=== PATIENT | female | born 1965 | race Caucasian/White ===

== ENCOUNTER 2023-11-29 10:06 | Emergency (ER) | payer BC ==
[2023-11-29] MEDS ORDERED: METHYLPREDNISOLONE 125 MG INJ ONE (10:17)
[2023-11-29] MEDS ORDERED: ALBUTEROL 2.5 MG/3 ML NEB SOL ONE (10:17)
[2023-11-29 10:26] LABS: Absolute Basophils 0.1 K/uL (0-0.5); Absolute Lymphocytes (CBC) 5.1 K/uL (0.7-4.9); Absolute Monocytes 0.8 K/uL (0.1-1.3); Absolute Neutrophil 5.5 K/uL (1.8-8.0); Basophils % 0.7 % (0-1.3); Eosinophils % 0.4 % (0-4.4); Hematocrit 39.1 % (36.0-45.0); Lymphocytes % 44.3 % (15.3-44.8); MCH 30.8 pg (27.0-35.0); MCHC 33.3 g/dL (32.0-36.0); MCV 92.5 fL (80-100); MPV 8.3 fL (7.6-11.3); Monocytes % 7.1 % (3.3-12.3); Neutrophils % 47.5 % (41.7-73.7); Platelets 435 thou/uL (152-406); RBC Red Blood Cell Count 4.22 M/uL (3.86-4.86); Red Cell Distribution Width 13.2 % (12.1-15.2)
[2023-11-29 10:35] LABS: PT Prothrombin Time 10.8 SECONDS (9.5-12.5); Protime INR 0.98
[2023-11-29 10:45] LABS: ALT/SGPT 35 U/L (13-56); AST/SGOT 20 U/L (15-37); Albumin 3.8 g/dL (3.4-5.0); Albumin/Globulin Ratio 1.3 (1.1-1.8); Alkaline Phosphatase 103 U/L (45-117); BUN Blood Urea Nitrogen 16 mg/dL (7-18); Bicarbonate 23 mEq/L (21-32); Bilirubin Direct 0.1 mg/dL (0-0.2); Bilirubin Indirect, Calculated 0.3 mg/dL (0.2-0.8); Bilirubin Total 0.4 mg/dL (0.2-1.0); Glomerular Filtration Rate 73 ml/min (=/>90); Glucose Level 208 mg/dL (74-106); NT PRO-BNP 121 pg/mL (<125); Protein, Total 6.8 g/dL (6.4-8.2); Sodium Level 140 mEq/L (136-145)
[2023-11-29 10:52] LABS: Troponin High Sensitivity < 3.0 pg/mL (<58.9)
--- NOTE | 2023-11-29 10:57 | RAD REPORT ---
EXAM DESCRIPTION: RAD - Chest Single View - 11/29/2023 10:49 am CLINICAL HISTORY: DYSPNEA COMPARISON: No comparisons FINDINGS: Lines: None. Lungs: No evidence of edema or pneumonia. Pleural: No significant pleural effusions or pneumothorax. Cardiac: The heart size is within normal limits. Mediastinum: Within normal limits. Bones: No acute fractures. Other: None IMPRESSION: No acute cardiopulmonary disease.
[2023-11-29] MEDS ORDERED: POTASSIUM CL SA 10 MEQ TAB PO ONE (11:06)
--- NOTE | 2023-11-29 12:26 | ER ---
Nurse's Notes [facility] Name: Jael Major Age: 58 yrs Sex: Female : 1965 Arrival Date: 11/29/2023 Time: 10:06 Bed 3 Private MD: Diagnosis: Dyspnea;Palpitations Presentation: 11/28 10:07 Chief complaint: Patient states: Took amoxicillin and diclofenac 30 min TURNAROUND PLANNER. Feels hot, ll1 fast HR, ears red. Coronavirus screen: Client denies travel out of the [place] in the last 14 days. At this time, the client does not indicate any symptoms associated with coronavirus-19. Ebola Screen: Patient denies travel to an Ebola-affected area in the 21 days before illness onset. Onset: The symptoms/episode began/occurred suddenly. Anaphylaxis evaluation, no signs or symptoms of anaphylaxis were noted. Initial Sepsis Screen: Does the patient meet any 2 criteria? No. Patient's initial sepsis screen is negative. Does the patient have a suspected source of infection? No. Patient's initial sepsis screen is negative. Risk Assessment: Do you want to hurt yourself or someone else? Patient reports no desire to harm self or others. Onset of symptoms was November 29, 2023. 10:07 Method Of Arrival: Ambulatory ll1 10:07 Acuity: KENNETH 2 ll1 Triage Assessment: 10:09 General: Appears distressed, uncomfortable, Behavior is appropriate for age, agitated. ll1 Pain: Complains of pain in tooth pain Quality of pain is described as aching, throbbing. EENT: Reports tooth pain. Neuro: Reports feel hot. Cardiovascular: Reports palpitations. Historical: - Allergies: 10:07 Bactrim DS; ll1 - PMHx: 10:07 Hypercholesterolemia; ll1 - Immunization history:: Adult Immunizations up to date. - Infectious Disease History:: Denies. - Social history:: Smoking status: Patient reports the use of cigarette tobacco products, smokes one-half pack cigarettes per day. Screenin:45 [facility] ED Fall Risk Assessment (Adult) History of falling in the last 3 months, ld1 including since admission No falls in past 3 months (0 pts). Abuse screen: Denies threats or abuse. Denies injuries from another. Nutritional screening: No deficits noted. Tuberculosis screening: No symptoms or risk factors identified. Assessment: 11:50 Reassessment: Patient appears in no apparent distress at this time. No changes from ld1 previously documented assessment. Patient and/or family updated on plan of care and expected duration. Pain level reassessed. Patient states symptoms have not improved. 12:44 Reassessment: Patient appears in no apparent distress at this time. No changes from ld1 previously documented assessment. Patient and/or family updated on plan of care and expected duration. Pain level reassessed. Patient is alert, oriented x 3, equal unlabored respirations, skin warm/dry/pink. 12:45 Respiratory: Airway is patent Respiratory effort is even, unlabored, Breath sounds are ld1 clear bilaterally. Vital Signs: 10:06 BP 120 / 57; Pulse 59; Resp 21; Temp 97.3(TE); Pulse Ox 86% on R/A; ld1 10:07 Pulse 76; Resp 18; Temp 97.3; Weight 106.59 kg; Height 5 ft. 7 in. ; ll1 11:24 BP 125 / 54; Pulse 66; Resp 22; Pulse Ox 95% on R/A; ld1 10:07 Body Mass Index 36.81 (106.59 kg, 170.18 cm) ll1 ED Course: 10:06 Patient arrived in ED. ld1 10:09 Triage completed. ll1 10:10 Arm band placed on Patient placed in an exam room, on a stretcher. ll1 10:15 Bharath Fournier, LIO is Primary Nurse. bp 10:15 Mavis Baker FNP is PHCP. jh7 10:15 Peter Alberto MD is Attending Physician. jh7 10:15 Inserted saline lock: 20 gauge in right antecubital area, using aseptic technique. bp Blood collected. 10:20 CBC with Diff Sent. bp 10:20 Basic Metabolic Panel Sent. bp 10:20 D-Dimer Sent. bp 10:20 LFT's Sent. bp 10:20 Magnesium Sent. bp 10:20 NT PRO-BNP Sent. bp 10:20 PT-INR Sent. bp 10:20 Troponin HS Sent. bp 10:51 XRAY Chest (1 view) In Process Unspecified. EDMS 12:45 Patient has correct armband on for positive identification. Placed in gown. Bed in low ld1 position. Call light in reach. Side rails up X2. ekg monitor on. Pulse ox on. NIBP on. Door closed. Noise minimized. Warm blanket given. 12:45 No provider procedures requiring assistance completed. IV discontinued, intact, ld1 bleeding controlled, No redness/swelling at site. Administered Medications: 10: Drug: MethylPrednisoLONE IVP 125 mg IVP once Route: IVP; Site: right antecubital; ld1 10: Drug: Albuterol Inhalation 2.5 mg Inhalation once Route: Inhalation; ld1 11:12 Drug: Potassium Chloride PO 40 mEq PO once Route: PO; ld1 Medication: 12:45 VIS not applicable for this client. ld1 Outcome: : Discharge ordered by . jh7 12:45 Discharged to home ambulatory, ld1 12:45 Condition: stable 12:45 Discharge instructions given to patient, Instructed on discharge instructions, follow up and referral plans. Demonstrated understanding of instructions, follow-up care, 12:45 Patient left the ED. ld1 Signatures: Dispatcher [employer] EDMS Bharath Fournier RN RN bp Lewis, Lynsay, RN RN 1 Tereza Hayes RN RN 1 Mavis Baker, PUBLIC RELATIONS ASSISTANT PUBLIC RELATIONS ASSISTANT [facility] Corrections: (The following items were deleted from the chart) 10:13 10:07 Chief complaint: Patient states: Took amoxicillin and 30 min TURNAROUND PLANNER. Feels hot, fast ll1 HR, ears red. ll1 10:30 10:07 Chief complaint: Patient states: Took amoxicillin and diflucnate 30 min TURNAROUND PLANNER. ll1 Feels hot, fast HR, ears red. ll1
--- NOTE | 2023-11-29 12:26 | EDPHYS ---
Physician Documentation [facility] Name: Jael Major Age: 58 yrs Sex: Female : 1965 Arrival Date: 11/29/2023 Time: 10: Bed 3 Private MD: ED Physician Peter Alberto HPI: 11/28 10:07 This 58 yrs old Female presents to ER via Ambulatory with complaints of Possible jh7 Allergic Reaction. 10:07 58-year-old female with a past medical history of hyperlipidemia presents to the ER for jh7 possible allergic reaction. She reports that she is scheduled to get multiple teeth pulled later in the week and that she took some diclofenac and amoxicillin 30 minutes prior to arrival. She reports that she has taken both of these medications before. Reports that she suddenly felt palpitations, shortness of breath, and flushed. Denies fever, chest pain, cough, itching, rash, and feeling like throat is closing.. Historical: - Allergies: 10:07 Bactrim DS; ll1 - PMHx: 10:07 Hypercholesterolemia; ll1 - Immunization history:: Adult Immunizations up to date. - Infectious Disease History:: Denies. - Social history:: Smoking status: Patient reports the use of cigarette tobacco products, smokes one-half pack cigarettes per day. ROS: 10:07 Constitutional: Per HPI jh7 Exam: 10:07 Eyes: Pupils equal round and reactive to light, extra-ocular motions intact. Lids and jh7 lashes normal. Conjunctiva and sclera are non-icteric and not injected. Cornea within normal limits. Periorbital areas with no swelling, redness, or edema. Cardiovascular: Regular rate and rhythm with a normal S1 and S2. No gallops, murmurs, or rubs. Normal PMI, no JVD. No pulse deficits. Abdomen/GI: Soft, non-tender, with normal bowel sounds. No distension or tympany. No guarding or rebound. No evidence of tenderness throughout. Back: No spinal tenderness. No costovertebral tenderness. Full range of motion. Skin: Warm, dry with normal turgor. Normal color with no rashes, no lesions, and no evidence of cellulitis. MS/ Extremity: Pulses equal, no cyanosis. Neurovascular intact. Full, normal range of motion. Neuro: Awake and alert, GCS 15, oriented to person, place, time, and situation. Motor strength 5/5 in all extremities. Sensory grossly intact. Normal gait. 10:07 Constitutional: The patient appears alert, awake, in obvious distress, mildly distressed, 10:07 Head/face: Exam is negative for swelling, 10:07 ENT: TM's: are normal, Nose: is normal, Posterior pharynx: is normal, Airway: normal, Tonsils: are normal in appearance, Uvula: normal, swelling, is not appreciated, pooling of secretions, is not appreciated, 10:07 Respiratory: mild respiratory distress is noted, Respirations: labored breathing, 10:07 Skin: Appearance: Color: dusky, flushing, that are moderate, Vital Signs: 10:06 BP 120 / 57; Pulse 59; Resp 21; Temp 97.3(TE); Pulse Ox 86% on R/A; ld1 10:07 Pulse 76; Resp 18; Temp 97.3; Weight 106.59 kg; Height 5 ft. 7 in. ; ll1 11:24 BP 125 / 54; Pulse 66; Resp 22; Pulse Ox 95% on R/A; ld1 10:07 Body Mass Index 36.81 (106.59 kg, 170.18 cm) ll1 MDM: 10:15 Patient medically screened. [facility] 11:02 ED course: Labs reviewed and are reassuring, patient feeling better, will repeat [facility] troponin at noon.. 12:32 Differential diagnosis: anaphylaxis, Myocardial Ischemia urticaria, Pulmonary embolism, [facility] SVT, electrolyte abnormality, pneumonia. Data reviewed: vital signs, nurses notes, lab test result(s), EKG, radiologic studies, plain films. Management of patient was discussed with the following: Dr. Alberto, ED attending physician. I considered the following discharge prescriptions or medication management in the emergency department Medications were administered in the Emergency Department. See MAR. Independent interpretation of the following test(s) in the Emergency Department EKG: See my EKG interpretation above. Test considered but Not performed: CT: CTA PE not done due to negative D-dimer. Historians other than the Patient: Spouse/Significant Other: . Scoring [employer] PERC Rule for PE Age >/= 50 Yes HR >/= 100 No O2 Sat Room Air < 95% Yes Unilateral leg swelling No Hemoptysis No Recent surgery or trauma </= 4 wks ago requiring treatment with general anesthesia No (0 pt) Prior PE or DVT No Hormone use (Oral contraceptives, hormone replacement or estrogenic hormones use in males or female patients No. Counseling: I had a detailed discussion with the patient and/or guardian regarding the historical points, exam findings, and any diagnostic results supporting the discharge/admit diagnosis, to return to the emergency department if symptoms worsen or persist or if there are any questions or concerns that arise at home. Response to treatment: the patient's symptoms have resolved after treatment, the patient is not short of breath. ED course: The patient's symptoms resolved after nebs and steroids. The patient was concern for an allergic reaction,. 11/28 10:16 Order name: Basic Metabolic Panel; Complete Time: [facility] 11/28 10:16 Order name: CBC with Diff; Complete Time: : [facility] 11/28 10:16 Order name: D-Dimer; Complete Time: [facility] 11/28 10:16 Order name: LFT's; Complete Time: [facility] 11/28 10:16 Order name: Magnesium; Complete Time: [facility] 11/28 10:16 Order name: NT PRO-BNP; Complete Time: [facility] 11/28 10:16 Order name: PT-INR; Complete Time: [facility] 11/28 10:16 Order name: Troponin HS; Complete Time: [facility] 11/28 11:47 Order name: Troponin High Sensitivity: draw at 12:15PM; Complete Time: 12:25 [facility] 11/28 10:16 Order name: XRAY Chest (1 view); Complete Time: 11: [facility] 11/28 10:16 Order name: EKG; Complete Time: : [facility] 11/28 10:16 Order name: Cardiac monitoring; Complete Time: 10 [facility] 11/28 10:16 Order name: EKG - Nurse/Tech; Complete Time: [facility] 11/28 10:16 Order name: IV Saline Lock; Complete Time: [facility] 11/28 10:16 Order name: Labs collected and sent; Complete Time: 10: [facility] 11/28 10:16 Order name: O2 Per Protocol; Complete Time: [facility] 11/28 10:16 Order name: O2 Sat Monitoring; Complete Time: 10:16 jh7 EC:12 Rate is 58 beats/min. Rhythm is regular. QRS Jackpot is Normal. HI interval is normal at 7 138 msec. QRS interval is normal at 108 msec. QT interval is normal at 452 msec. No Q waves. T waves are Normal. No ST changes noted. Clinical impression: Sinus bradycardia. Administered Medications: 10:26 Drug: MethylPrednisoLONE IVP 125 mg IVP once Route: IVP; Site: right antecubital; ld1 10:26 Drug: Albuterol Inhalation 2.5 mg Inhalation once Route: Inhalation; ld1 11:12 Drug: Potassium Chloride PO 40 mEq PO once Route: PO; ld1 Disposition: 17:31 Co-signature as Attending Physician, Peter Alberto MD I reviewed the patient's care rt provided by the Advanced Practice Provider and agree with the diagnosis and treatment plan. 18:12 I agree with the assessment and plan of care. I reviewed the patient's care provided by rt Advanced Practice Provider \T\ agree w/ the diagnosis \T\ care plan. I personally saw the pt \T\ performed a substantive portion of the visit, incldng all aspects of the (History/Exam/Medical Decision Making). I evaluated the patient initially, no signs of anaphylaxis, breath sounds are clear. EKG shows no acute findings.. Disposition Summary: 11/29/23 12:26 Discharge Ordered Notes: Location: Home [facility] Problem: new [facility] Symptoms: are resolved [facility] Condition: Stable [facility] Diagnosis - Dyspnea [facility] - Palpitations [facility] Followup: [facility] - With: Private Physician - When: 2 - 3 days - Reason: Recheck today's complaints Discharge Instructions: - Discharge Summary Sheet [facility] - Drug Allergy [facility] - Palpitations [facility] - Shortness of Breath, Adult [facility] Forms: - Medication Reconciliation Form [facility] - Thank You Letter [facility] - Patient Portal Instructions [facility] - Leadership Thank You Letter [facility] Signatures: Dispatcher [employer] Sigifredo Zambrano RN RN ll1 Tereza Hayes RN RN ld1 Mavis Baker, RN CHILD RN CHILD [facility] Peter Alberto MD MD rt Corrections: (The following items were deleted from the chart) 10:16 10:16 BASIC METABOLIC PANEL+C.LAB.BRZ ordered. EDMS EDMS 10:16 10:16 CBC+H.LAB.BRZ ordered. EDMS EDMS 10:16 10:16 D-DIMER+COAG.LAB.BRZ ordered. EDMS EDMS 10:16 10:16 HEPATIC FUNCTION+C.LAB.BRZ ordered. EDMS EDMS 10:16 10:16 MAGNESIUM+C.LAB.BRZ ordered. EDMS EDMS 10:16 10:16 PROBNP+C.LAB.BRZ ordered. EDMS EDMS 10:16 10:16 PROTIME (+INR)+COAG.LAB.BRZ ordered. EDMS EDMS 10:16 10:16 Troponin High Sensitivity+C.LAB.BRZ ordered. EDMS EDMS
[2023-11-29 13:12] VITALS: BP 125/54; TEMP 97.3; O2SAT 95
== END 2023-11-29 12:45 | disposition home or self-care (01) ==
LOC: ER 10:06
DX: R06.00 Dyspnea, unspecified (principal); R00.2 Palpitations; F17.210 Nicotine dependence, cigarettes, uncomplicated; Z88.1 Allergy status to other antibiotic agents
CPT/HCPCS: 85025; 80048; 36415; 83735; 85610; 85379; 80076; 84484 ×2; 83880; 71045; 96374; 99285; J7613; J2919; 93005

== ENCOUNTER 2023-12-03 14:43 | Emergency (ER) | payer BC ==
[2023-12-03] MEDS ORDERED: METHYLPREDNISOLONE 125 MG INJ ONE (15:39)
[2023-12-03 15:48] LABS: Absolute Basophils 0.1 K/uL (0-0.5); Absolute Lymphocytes (CBC) 3.7 K/uL (0.7-4.9); Absolute Monocytes 0.5 K/uL (0.1-1.3); Absolute Neutrophil 10.3 K/uL (1.8-8.0); Basophils % 0.5 % (0-1.3); Eosinophils % 0.2 % (0-4.4); Hematocrit 38.9 % (36.0-45.0); Hemoglobin 13.2 g/dL (12.0-15.0); Lymphocytes % 25.5 % (15.3-44.8); MCH 31.3 pg (27.0-35.0); MPV 7.7 fL (7.6-11.3); Monocytes % 3.2 % (3.3-12.3); Neutrophils % 70.6 % (41.7-73.7); Platelets 419 thou/uL (152-406); RBC Red Blood Cell Count 4.22 M/uL (3.86-4.86); Red Cell Distribution Width 13.2 % (12.1-15.2)
[2023-12-03 16:02] LABS: Albumin 3.7 g/dL (3.4-5.0); Albumin/Globulin Ratio 1.2 (1.1-1.8); Anion Gap 8.6 mEq/L (5.0-15.0); Bilirubin Direct 0.1 mg/dL (0-0.2); Bilirubin Indirect, Calculated 0.3 mg/dL (0.2-0.8); Bilirubin Total 0.4 mg/dL (0.2-1.0); Potassium 3.6 mEq/L (3.5-5.1); Protein, Total 6.7 g/dL (6.4-8.2); Troponin High Sensitivity 7.8 pg/mL (<58.9)
--- NOTE | 2023-12-03 16:44 | RAD REPORT ---
EXAM DESCRIPTION: RADChest Single View12/03/2023 4:18 pm CLINICAL HISTORY: DYSPNEA COMPARISON: Chest Single View dated 11/29/2023 TECHNIQUE: Portable AP view of the chest. FINDINGS: Minimal right basilar streaky opacities, may represent atelectasis. No pneumothorax or eff usion. The cardiomediastinal contours are unremarkable. IMPRESSION: Suspected right basilar atelectasis. No other acute findings.
--- NOTE | 2023-12-03 17:11 | ER ---
Nurse's Notes [facility] Name: Jael Major Age: 58 yrs Sex: Female : 1965 Arrival Date: 12/03/2023 Time: 14:43 Bed 19 Private MD: Diagnosis: Allergic reaction Presentation: 12/02 14:51 Chief complaint: Patient states: is on amoxicillin/clav and she is having a reaction , iw she feels sweaty and my breathing is bad, nauseated , can't walk. Coronavirus screen: Client presents with at least one sign or symptom that may indicate coronavirus-19. Ebola Screen: Patient negative for fever greater than or equal to 101.5 degrees Fahrenheit, and additional compatible Ebola Virus Disease symptoms Patient denies exposure to infectious person. Patient denies travel to an Ebola-affected area in the 21 days before illness onset. No symptoms or risks identified at this time. 14:51 Method Of Arrival: Wheelchair iw 14:51 Acuity: KENNETH 2 iw 14:53 Initial Sepsis Screen: Does the patient meet any 2 criteria? Does the patient have a iw suspected source of infection?. Risk Assessment: Do you want to hurt yourself or someone else? Patient reports no desire to harm self or others. Onset of symptoms was December 03, 2023. 17:02 Onset: The symptoms/episode began/occurred acutely. Anaphylaxis evaluation, the patient cp4 reports or I have noted the following symptoms which indicate a significant risk of anaphylaxis: shortness of breath. Triage Assessment: 17:02 General: Appears distressed, Behavior is calm, cooperative, appropriate for age. Pain: cp4 Denies pain. Historical: - Allergies: 14:53 Bactrim DS; iw - PMHx: 14:53 Hypercholesterolemia; iw - Immunization history:: Adult Immunizations up to date. - Infectious Disease History:: Denies. CDIFF, C. Auris, ESBL, MRSA (w/in 1 year), VRE (w/in 1 year), TB, . - Social history:: Smoking status: Patient denies any tobacco usage or history of. Screenin:11 [facility] ED Fall Risk Assessment (Adult) History of falling in the last 3 months, cp4 including since admission No falls in past 3 months (0 pts) Confusion or Disorientation No (0 pts) Intoxicated or Sedated No (0 pts) Impaired Gait No (0 pts) Mobility Assist Device Used No (0 pt) Altered Elimination No (0 pt) Score/Fall Risk Level 0 - 2 = Low Risk Oriented to surroundings, Maintained a safe environment, Assessed \T\ reinforced patient's understanding of fall precautions, Hourly rounding (assess needs \T\ fall precautionary measures) done. Abuse screen: Denies threats or abuse. Nutritional screening: No deficits noted. Tuberculosis screening: No symptoms or risk factors identified. Assessment: 17:11 Respiratory: Airway is patent Respiratory effort is even, unlabored, Breath sounds are cp4 clear bilaterally. Vital Signs: 14:52 BP 95 / 57; Pulse 92; Resp 14; Temp 98.4; Pulse Ox 83% on R/A; iw 17:20 BP 138 / 63; Pulse 80; Resp 18; Pulse Ox 96% ; cp4 ED Course: 14:44 Patient arrived in ED. mr 14:48 Alek Panda MD is Attending Physician. sp3 14:52 Triage completed. iw 15:03 Adriana Waters is Primary Nurse. cp4 15:32 Arm band placed on. iw 15:39 Basic Metabolic Panel Sent. bc6 15:39 CBC with Diff Sent. bc6 15:39 LFT's Sent. bc6 15:39 Magnesium Sent. bc6 15:39 NT PRO-BNP Sent. bc6 15:39 Troponin HS Sent. bc6 15:39 Initial lab(s) drawn, by vt, sent to lab. Inserted saline lock: 20 gauge in right bc6 antecubital area, using aseptic technique. Blood collected. 16:09 EKG done, by cvt tech. jr12 16:19 XRAY Chest (1 view) In Process Unspecified. EDMS 17:11 Bed in low position. Call light in reach. Side rails up X 1. Provided Education on: cp4 allergic reaction. 17:11 No provider procedures requiring assistance completed. intact, bleeding controlled, No cp4 redness/swelling at site. Pressure dressing applied. Administered Medications: 15:43 Drug: MethylPrednisoLONE IVP 125 mg IVP once Route: IVP; Site: right antecubital; cp4 Medication: 17:11 VIS not applicable for this client. cp4 Outcome: 17:11 Discharge ordered by . sp3 17:11 Discharged to home ambulatory, cp4 17:11 Condition: stable 17:11 Discharge instructions given to patient, Instructed on discharge instructions, follow up and referral plans. medication usage, Demonstrated understanding of instructions, follow-up care, medications, Prescriptions given X 1, 17:20 Patient left the ED. cp4 Signatures: Dispatcher [employer] EDCO Michael Jael, Reg Reg mr Charlene Espinal, RN RN Alek Mo MD MD sp3 Shawna Cross Christina cp4 Dorothy Morse 12 Corrections: (The following items were deleted from the chart) 14:54 14:51 Acuity: KENNETH 3 iw nick
--- NOTE | 2023-12-03 17:11 | EDPHYS ---
Physician Documentation [facility] Name: Jael Major Age: 58 yrs Sex: Female : 1965 Arrival Date: 12/03/2023 Time: 14:43 Bed 19 Private MD: ED Physician Alek Panda HPI: 12/02 15:26 This 58 yrs old Female presents to ER via Wheelchair with complaints of Allergic sp3 Reaction. 15:26 58-year-old female with a history of hyperlipidemia and recent visit here 4 days ago sp3 for allergic reaction and difficulty breathing after taking old stock of amoxicillin as well as her prescribed diclofenac for dental pain. She had a preop for dental surgery/dental extraction 2 days ago and today picked up her Augmentin which was prescribed by the oral surgeon and after her first dose she started having similar symptoms of fatigue, difficulty breathing and shortness of breath. She denies any rash per se but did not have it 4 days ago either. She denies any known sick contacts, travel history, prolonged immobilization, prior DVT or PE, cough, fever or any other symptoms on ROS.. Historical: - Allergies: 14:53 Bactrim DS; iw - PMHx: 14:53 Hypercholesterolemia; iw - Immunization history:: Adult Immunizations up to date. - Infectious Disease History:: Denies. CDIFF, C. Auris, ESBL, MRSA (w/in 1 year), VRE (w/in 1 year), TB, . - Social history:: Smoking status: Patient denies any tobacco usage or history of. ROS: 15:28 Constitutional: Negative for fever, chills, and weight loss, Eyes: Negative for injury, sp3 pain, redness, and discharge, ENT: Negative for injury, pain, and discharge, Neck: Negative for injury, pain, and swelling, Cardiovascular: Negative for chest pain, palpitations, and edema, Abdomen/GI: Negative for abdominal pain, nausea, vomiting, diarrhea, and constipation, Back: Negative for injury and pain, MS/Extremity: Negative for injury and deformity, Neuro: Negative for headache, weakness, numbness, tingling, and seizure, Psych: Negative for depression, anxiety, suicide ideation, homicidal ideation, and hallucinations, Endocrine: Negative for neck swelling, polydipsia, polyuria, polyphagia, and marked weight changes, Hematologic/Lymphatic: Negative for swollen nodes, abnormal bleeding, and unusual bruising, 15:28 All other systems are negative, Exam: 15:29 Constitutional: This is a well developed, well nourished patient who is awake, alert, sp3 and in no acute distress. Head/Face: Normocephalic, atraumatic. Eyes: Pupils equal round and reactive to light, extra-ocular motions intact. Lids and lashes normal. Conjunctiva and sclera are non-icteric and not injected. Cornea within normal limits. Periorbital areas with no swelling, redness, or edema. ENT: Nares patent. No nasal discharge, no septal abnormalities noted. External auditory canals are clear. Oropharynx with no redness, swelling, or masses, exudates, or evidence of obstruction, uvula midline. Mucous membranes moist. Neck: Trachea midline, no thyromegaly or masses palpated, and no cervical lymphadenopathy. Supple, full range of motion without nuchal rigidity, or vertebral point tenderness. No Meningismus. Chest/axilla: Normal chest wall appearance and motion. Nontender with no deformity. No lesions are appreciated. Cardiovascular: Regular rate and rhythm with a normal S1 and S2. No gallops, murmurs, or rubs. Normal PMI, no JVD. No pulse deficits. Abdomen/GI: Soft, non-tender, with normal bowel sounds. No distension or tympany. No guarding or rebound. No evidence of tenderness throughout. Back: No spinal tenderness. No costovertebral tenderness. Full range of motion. Skin: Warm, dry with normal turgor. Normal color with no rashes, no lesions, and no evidence of cellulitis. MS/ Extremity: Pulses equal, no cyanosis. Neurovascular intact. Full, normal range of motion. Neuro: Awake and alert, GCS 15, oriented to person, place, time, and situation. Cranial nerves II-XII grossly intact. Motor strength 5/5 in all extremities. Sensory grossly intact. Cerebellar exam normal. Normal gait. 15:29 Respiratory: No significant dyspnea or shortness of breath noted. Room air pulse oxygenation at 83% which is, up to 97% on 6 L of oxygen. No cyanosis, rash or other abnormalities., 16:21 ECG was reviewed by the Attending Physician. EKG demonstrates normal sinus rhythm at 80 sp3 bpm with normal intervals, normal QRS, normal axis, normal ST/T-segment's without evidence of acute ischemia. Vital Signs: 14:52 BP 95 / 57; Pulse 92; Resp 14; Temp 98.4; Pulse Ox 83% on R/A; iw 17:20 BP 138 / 63; Pulse 80; Resp 18; Pulse Ox 96% ; cp4 MDM: 15:04 Patient medically screened. sp3 15:29 Data reviewed: vital signs, nurses notes, old medical records, lab test result(s), EKG, sp3 radiologic studies. ED course: 58-year-old female with recurrent amoxicillin use with recurrent symptoms of shortness of breath and hypoxia. This is probably an allergic reaction but cannot rule out any other items including viral syndrome, pneumonia, ACS, among others. Patient refused COVID-19 test stating that "she does not trust it". She also refused Benadryl stating that it "does not agree with her". Solu-Medrol IV has been given 125 mg and workup pending includes chest x-ray, EKG and laboratory values. She is not in any acute distress, anaphylaxis or significant urticarial state. Disposition pending workup and patient course with probable discharge if O2 requirement is no longer needed, workup is negative, and patient is improved.. 16:22 ED course: Patient is improved and O2 requirement is down to 2 L and we are weaning to sp3 0 L. EKG demonstrates no significant abnormalities. Chest x-ray demonstrates potential mild increased vascular markings indicative of possible pneumonitis diffuse. Again I have urged for further viral testing however patient declines.. 17:10 ED course: Patient maintaining oxygenation at 94% on room air after all oxygen has been sp3 removed. She continues to feel well. We will discharge her home on oral prednisone. I have told her to speak to her oral surgeon on whether they want to continue with the procedure given the fact that she has had steroids. She acknowledged and states that she will have that conversation.. 12/02 15:28 Order name: Basic Metabolic Panel; Complete Time: 16:16 sp3 12/02 15:28 Order name: CBC with Diff; Complete Time: 16:16 sp3 12/02 15:28 Order name: LFT's; Complete Time: 16:16 sp3 12/02 15:28 Order name: Magnesium; Complete Time: 16:16 sp3 12/02 15:28 Order name: NT PRO-BNP; Complete Time: 16:16 sp3 12/02 15:28 Order name: Troponin HS; Complete Time: 16:16 sp3 12/02 15:28 Order name: XRAY Chest (1 view); Complete Time: 17:07 sp3 12/02 15:28 Order name: Cardiac monitoring; Complete Time: 15:37 sp3 12/02 15:28 Order name: EKG - Nurse/Tech; Complete Time: 16:09 sp3 12/02 15:28 Order name: IV Saline Lock; Complete Time: 15:37 sp3 12/02 15:28 Order name: Labs collected and sent; Complete Time: 15:37 sp3 12/02 15:28 Order name: O2 Per Protocol; Complete Time: 15:37 sp3 12/02 15:28 Order name: O2 Sat Monitoring; Complete Time: 15:37 sp3 Administered Medications: 15:43 Drug: MethylPrednisoLONE IVP 125 mg IVP once Route: IVP; Site: right antecubital; cp4 Disposition Summary: 12/03/23 17:11 Discharge Ordered Notes: Location: Home sp3 Condition: Stable sp3 Diagnosis - Allergic reaction sp3 Followup: sp3 - With: Private Physician - When: Upon discharge from the Emergency Department - Reason: Continuance of care Discharge Instructions: - Discharge Summary Sheet sp3 - Hives sp3 Forms: - Medication Reconciliation Form sp3 - Antibiotic Education sp3 - Prescription Opioid Use sp3 - Patient Portal Instructions sp3 - Leadership Thank You Letter sp3 Prescriptions: - Prednisone 20 mg Oral Tablet - take 2 tablets ORAL route once daily for 5 days; 10 tablet; Refills: 0, Product sp3 Selection Permitted Signatures: Dispatcher [employer] Charlene Friedman RN RN iw Patel, Setul, MD MD sp3 Adriana Waters cp4 Corrections: (The following items were deleted from the chart) 15:29 15:29 Chest Single View+[id number].[email or web address] ordered. JOSÉ MIGUEL VALDEZ
[2023-12-03 18:07] VITALS: BP 138/63; TEMP 98.4; O2SAT 96
--- NOTE | 2023-12-07 13:09 | EKG ---
Test Date: 2023-12-03 Test Time: 16:03:26 [place] Operator: [facility] MEASUREMENT RESULTS: Intervals: Rate: 79 [place]: 160 QRSD: 94 QT: 390 QTc: 447 [place]: P: 59 [place]: 160 QRS: 80 T: 40 INTERPRETIVE STATEMENTS: Normal sinus rhythm Normal ECG Compared to ECG 11/29/2023 10:12:58 Sinus bradycardia no longer present Electronically Signed On 12-07-23 12:59:05 CDT by Patric Moreno
== END 2023-12-03 17:20 | disposition home or self-care (01) ==
LOC: ER 14:43
DX: R06.02 Shortness of breath (principal); R53.83 Other fatigue; E78.00 Pure hypercholesterolemia, unspecified; Z88.1 Allergy status to other antibiotic agents
CPT/HCPCS: 93005; 85025; 80048; 36415; 83735; 80076; 84484; 83880; 71045; J2919